=== PATIENT | female | born 1990 | race Caucasian/White ===

== ENCOUNTER → 2019-09-10 17:18 | Outpatient (CLI) | payer OTHER, SELFPAY ==
--- NOTE | ~2019-09-10 | US_ITS ---
EXAMINATION: US renal BI DATE: 09/10/2019 17:33 INDICATION: Right flank pain TECHNIQUE: Multiple grayscale and Doppler ultrasound images of the kidneys were obtained. COMPARISON: None. FINDINGS: The right kidney measures 9.7 x 5.4 x 5.6 cm. The left kidney measures 10.4 x 5.4 x 4.6 cm. The kidneys demonstrate normal parenchymal echogenicity. There is no hydronephrosis. The bladder is normal. IMPRESSION: 1. Normal kidneys without hydronephrosis. Reviewed, dictated and finalized at location A.
== END ==
PROVIDERS: PCP Nurse Practitioner Family; Visit Provider Nurse Practitioner Family
DX: R10.9 Unspecified abdominal pain (principal)
CPT/HCPCS: 76775

== ENCOUNTER 2023-03-20 18:41 | Emergency (ER) | payer OTHER, SELFPAY ==
[2023-03-20 18:53] VITALS: BP 137/82; PULSE 79; RESP 18; TEMP 36.6; O2SAT 100
--- NOTE | 2023-03-20 18:53 | ED.URI ---
HPI - URI/Sore Throat General Chief Complaint: Upper Respiratory Infection Stated Complaint: sorethroat Source: patient and RN notes reviewed History of Present Illness HPI Narrative: 33 yo F presents to urgent care with complaints of left throat, ear, and facial fullness. Pt states it started out as a little nasal drainage on the left side which she has had before so she began taking Claritin. Pt states it has now progressed into her left side of neck/throat and feels like her tonsil is swollen on that side. Denies any fevers, chills, vomiting, chest pain, or SOB. Related Data Home Medications Medication Instructions Recorded Confirmed norethindrone (contraceptive) 0.35 0.35 mg PO DAILY 03/20/23 03/20/23 mg tablet Allergies Allergy/AdvReac Type Severity Reaction Status Date / Time No Known Allergies Allergy Verified 03/20/23 18:59 Review of Systems Review of Systems: Pertinent positives and pertinent negatives per HPI. [facility], LAT[facility] Past Medical History Medical History Essential (primary) hypertension (~2010) History of kidney stones Hyperlipidemia Right flank pain Seasonal allergies Surgical History Surgical History H/O section (~2009) History of renal stent Family History Family History Father Family history of hypercholesterolemia Hypertension Malignant neoplasm of prostate Sibling Family history of hypercholesterolemia Hypertension Melanoma Grandparent Family history of lung cancer Family history of heart disease in male family member before age 55 Social History Social History Smoking status: Never smoker Second hand tobacco smoke exposure: No Alcohol intake: current Drinks per week: 4 Substance use: never Substance use type: does not use Lack of Transportation: No Lack of Food: Never True Current Housing: I Have Housing Concerned About Future Housing: No Difficulty Paying Gas/Electric Bills: No Difficulty Paying for Meds: No Currently Unemployed: No Education: Associate Degree Difficulty w/ Childcare or Family Care: No Living arrangements: with family Additional living arrangements comments: 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 There is no relevant family history pertinent to the patient complaint. Exam Narrative: GENERAL: This is a well-nourished, well-developed patient, in no apparent distress. HEAD: normocephalic, atraumatic. EYES: Sclera clear/white. Vision is grossly intact. EARS: External ears normal, auditory canals clear and without drainage, TMs normal without perforation. Hearing grossly intact. NOSE: External nose normal with no obvious nasal discharge, nares without redness, no rhinorrhea. THROAT: Mucous membranes moist, posterior pharynx mildly erythremic. Some white exudate noted to left superior tonsil. Visuality is limited on exam. NECK: Neck supple, with mild lymphadenopathy on the left. No masses or thyromegaly. CARDIOVASCULAR: Regular rate and rhythm without murmurs, gallops, or rubs. RESPIRATORY: Clear to auscultation. Breath sounds equal bilaterally. No wheezes, rales, or rhonchi. SKIN: warm, intact with no suspicious lesions or rash, good texture and turgor. NEURO: awake, alert, and oriented to person, place and time. There were no obvious focal neurologic abnormalities. Course Course Level of Care: Express Care Visit Vital Signs Vital signs: Vital Signs
--- NOTE | 2023-03-20 19:16 | PC.NURSE ---
PT DECLINES TRANSFER TO ER FOR FURTHER EVALUATION. PT DENIES ANY DIFFICULTY BREATHING. NO RESP DISTRESS NOTED. LEFT TONSIL IS NOTED TO BE SWOLLEN.
== END 2023-03-20 19:20 | disposition home or self-care (01) ==
PROVIDERS: Emergency Provider Nurse Practitioner Family; PCP Nurse Practitioner Family
DX: J03.90 Acute tonsillitis, unspecified (principal); E78.5 Hyperlipidemia, unspecified; I10 Essential (primary) hypertension
CPT/HCPCS: 87081; 87880; 99213; G0463

== ENCOUNTER 2023-07-09 16:44 | Emergency (ER) | payer OTHER, SELFPAY ==
--- NOTE | ~2023-07-09 | CT_ITS ---
Non-contrast CT scan of the Abdomen and Pelvis Clinical indication: Right flank pain Technique: 2.5 mm axial scans were obtained through the abdomen and pelvis without intravenous or or al contrast. Dose reduction technique was used on this scan by utilizing automated exposure control a nd iterative reconstruction technique. The dose-length product (DLP) was 560.21 mGy-cm. Findings: Images through the lung bases reveal no abnormalities. 1 cm nonobstructing right renal stone noted. Additional 3-4 mm nonobstructing right renal stone prese nt. No left renal stone. No ureteral stone or hydronephrosis on either side. The liver, spleen, pancreas, gallbladder, and adrenals appear normal. There is no aortic aneurysm. There is no evidence of bowel obstruction. Normal appendix. Images through the pelvis were performed. There is no evidence of ascites or lymphadenopathy. Urinary bladder unremarkable. No adnexal mass seen. No ascites. Impression: Nonobstructing right nephrolithiasis, as detailed above. Reviewed, dictated and finalized at [facility]. NEERING PROGRAM ANALYST Impression: Nonobstructing right nephrolithiasis, as detailed above.
[2023-07-09 16:54] VITALS: BP 120/79; PULSE 92; RESP 18; TEMP 36.6; O2SAT 100
--- NOTE | 2023-07-09 17:05 | ED.GENADULT ---
HPI - General Adult General Chief complaint: Urogenital-Female Stated complaint: R kidney pain Time Seen by Provider: 07/09/23 16:47 History of Present Illness HPI narrative: 33-year-old female presents to the emergency department for evaluation of right flank pain. Patient states she has had right flank pain for approximately last 2 weeks. Patient had follow-up on Monday and had a UA that showed no evidence of hematuria no evidence of infection. Patient does have history of kidney stones and suspected this was what was causing the pain but pain has been persistent. Patient does have complaint of pain and nausea. Patient declined any medications for pain or for nausea control. Related Data Home Medications Medication Instructions Recorded Confirmed norethindrone (contraceptive) 0.35 0.35 mg PO DAILY 03/20/23 03/20/23 mg tablet Allergies Allergy/AdvReac Type Severity Reaction Status Date / Time No Known Allergies Allergy Verified 07/09/23 17:03 Review of Systems Review of Systems: All systems reviewed & are unremarkable except as noted in HPI and below PMFSH Past Medical History Medical History Essential (primary) hypertension (~2010) History of kidney stones Hyperlipidemia Right flank pain Seasonal allergies Surgical History Surgical History H/O section (~2009) History of renal stent Family History Family History Father Family history of hypercholesterolemia Hypertension Malignant neoplasm of prostate Sibling Family history of hypercholesterolemia Hypertension Melanoma Grandparent Family history of lung cancer Family history of heart disease in male family member before age 55 Social History Social History Smoking status: Never smoker Second hand tobacco smoke exposure: No Alcohol intake: current Drinks per week: 4 Substance use: never Substance use type: does not use Lack of Transportation: No Lack of Food: Never True Current Housing: I Have Housing Concerned About Future Housing: No Difficulty Paying Gas/Electric Bills: No Difficulty Paying for Meds: No Currently Unemployed: No Education: Associate Degree Difficulty w/ Childcare or Family Care: No Living arrangements: with family Additional living arrangements comments: 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 HEAD: normocephalic, atraumatic. EYES: PERRLA/EOMI, conjunctivae clear. NECK: Supple. No adenopathy, no masses. RESPIRATORY: Airway patent, respirations nonlabored. Clear to auscultation bilaterally, no rales, rhonchi, wheezing. CARDIOVASCULAR: Regular rate and rhythm without murmurs rubs or gallops. ABDOMINAL: Right CVA tenderness to palpation MUSCULOSKELETAL: Moves all extremities. Strength/ROM intact, No edema, No calf tenderness. NEURO: Alert. Cranial nerves II through XII intact. Grossly intact SKIN: Warm, dry. Normal Color Course Course Emergency Course: 33-year-old female present to the emergency department for evaluation of right flank pain. Patient is afebrile with no leukocytosis and a stable hemoglobin. No acute abnormalities on her CMP. UA was positive for blood and white blood cells. Along with rare bacteria. CT scan was negative for obstructing ureteral calculi. Patient does have some burning with urination along with the right CVA tenderness. Patient is being treated for a suspected urinary tract infection. Patient was updated on the treatment plan. All ques
[2023-07-09 17:15] VITALS: BP 117/73; PULSE 78; RESP 22; O2SAT 100
[2023-07-09 17:18] LABS: Appearance Urine Clear (Clear); Bacteria Urine Rare /hpf; Bilirubin Urine Negative (Negative); Blood Urine 1+ (Negative); Color Urine Yellow (Yellow); Glucose Urine UA Negative (Negative); Ketones Urine Negative (Negative); Leukocyte Esterase Ur Trace LEU/UL (Negative); Nitrate Urine Negative (Negative); Non Pathogenic Casts 0-2; Protein Urine Negative (Negative); RBC Urine 0-2 /hpf (0-2); Specific Grav Ur 1.013 (1.001-1.035); Squamous Epithelial Cell Urine Occasional /hpf (Few); Urobilinogen Urine 0.2 mg/dL (<2.0); pH Urine 5.5 (5.0-9.0)
[2023-07-09 17:22] LABS: Add Urine Microscopic? YES
[2023-07-09 17:27] LABS: Basophils Percent Auto 0.4 % (0.2-1.2); Eosinophils Absolute Auto 0.2 K/mm3 (0-0.3); Eosinophils Percent Auto 2.4 % (0-4.4); Hematocrit 43.2 % (37.0-47.0); Hemoglobin 14.4 g/dL (12.0-15.0); Immature Granulocyte Absolute 0.01 K/mm3 (0.00-0.031); Immature Granulocyte Percent A 0.1 % (0-0.5); Lymphocytes Absolute Auto 2.91 K/mm3 (0.9-3.2); Lymphocytes Percent Auto 38.9 % (18.3-44.2); Mean Corpuscular HGB Conc 33.3 g/dl (32-36); Mean Corpuscular Volume 92.9 fl (80-100); Mean Platelet Volume 8.9 fl (7.4-10.4); Monocytes Absolute Auto 0.7 K/mm3 (0.1-0.6); Monocytes Percent Auto 9.1 % (2.6-8.5); Neutrophils Absolute Auto 3.7 K/mm3 (1.3-6.7); Neutrophils Percent Auto 49.1 % (45.5-73.1); Platelet Count Result 279 k/mm3 (150-375); Red Blood Count 4.65 M/mm3 (4.2-5.4); Red Cell Distribution Width 11.9 % (11.5-14.5); White Blood Count 7.5 K/mm3 (4.5-10.0)
[2023-07-09 17:42] LABS: Alanine Aminotransferase 34 U/L (6-35); Albumin Level 4.2 g/dL (3.5-5.1); Alkaline Phosphatase 64 U/L (38-126); Anion Gap 8 mmol/L (8-16); Aspartate Amino Transferase 26 U/L (14-36); Bilirubin,Total 0.2 mg/dL (0.2-1.3); Blood Urea Nitrogen 13 mg/dL (7-17); Calcium 9.2 mg/dL (8.4-10.2); Carbon Dioxide 23 mmol/L (22-30); Chloride 106 mmol/L (98-107); Estimated Glomerular Filt Rate > 60; Glucose 110 mg/dL (65-110); Sodium 137 mmol/L (137-145)
[2023-07-09 17:45] VITALS: PULSE 79; RESP 18; O2SAT 100
[2023-07-09 18:00] VITALS: PULSE 70; RESP 23; O2SAT 100
[2023-07-09 18:15] VITALS: PULSE 77; RESP 20; O2SAT 99
[2023-07-09] MEDS: CEPHALEXIN 500 MG CAPSULE PO (18:22)
[2023-07-09] MEDS: PHENAZOPYRIDINE HCL 100 MG TABLET 200 MG PO (18:22)
[2023-07-09] MEDS: HYDROcodone/acetaminophen (*CRX) 5-325 MG TABLET 1 TAB PO (18:22)
[2023-07-09 18:30] VITALS: BP 120/70; PULSE 80; RESP 18; O2SAT 99
== END 2023-07-09 18:42 | disposition home or self-care (01) ==
LOC: ANHED 18:28
PROVIDERS: Emergency Provider Emergency Medicine; PCP Nurse Practitioner Family
DX: R10.31 Right lower quadrant pain (principal); I10 Essential (primary) hypertension; E78.5 Hyperlipidemia, unspecified; Z87.442 Personal history of urinary calculi; N20.0 Calculus of kidney
CPT/HCPCS: 36415; 74176; 80053; 81001; 81025; 85025; 87086; 87088; 99284; A9270

== ENCOUNTER 2023-07-19 16:39 | Outpatient (CLI) | payer OTHER, SELFPAY ==
--- NOTE | ~2023-07-19 | XR_ITS ---
EXAMINATION: XR abdomen/kub 1V DATE: 07/19/2023 16:55 INDICATION: Calculus of kidney. TECHNIQUE: A supine view of the abdomen on 2 radiographs was obtained. COMPARISON: CT abdomen and pelvis 07/09/2023 FINDINGS: There are no dilated loops of bowel. There is a 6 mm stone in right kidney. There are phleb oliths in right pelvis. IMPRESSION: 1. 6 mm stone in right kidney. Reviewed, dictated and finalized at location E. PLANNER
== END 2023-07-19 16:40 ==
PROVIDERS: PCP Nurse Practitioner Family; Visit Provider Nurse Practitioner Family
DX: N20.0 Calculus of kidney (principal)
CPT/HCPCS: 74018

== ENCOUNTER 2023-08-14 07:51 | Outpatient (CLI) | payer OTHER, SELFPAY ==
--- NOTE | 2023-08-14 08:02 | ECG_ITS ---
Measurements Intervals [place] Rate: 73 P: 41 NM: 151 QRS: 6 QRSD: 81 T: 39 QT: 382 QTc: 423 Interpretive Statements SINUS RHYTHM LOW-VOLTAGE QRS IN PRECORDIAL LEADS BORDERLINE ECG NO PREVIOUS ECG AVAILABLE FOR COMPARISON Electronically Signed On 08-14-2023 18:24:50 DENTAL INSTRUMENT MAKER by Daryn Dean M.D.
[2023-08-14 08:42] LABS: Prothrombin Time 13.5 Seconds (11.1-14.7)
[2023-08-14 08:43] LABS: Partial Thromboplastin Time 27.1 SECONDS (22.3-36.8)
== END 2023-08-14 07:52 | disposition home or self-care (01) ==
LOC: ANHSURGERY 07:56
PROVIDERS: PCP Nurse Practitioner Family; Visit Provider Urology
DX: Z01.818 Encounter for other preprocedural examination (principal); N20.0 Calculus of kidney; I10 Essential (primary) hypertension; R93.1 Abnormal findings on diagnostic imaging of heart and coronary circulation
CPT/HCPCS: 36415; 85610; 85730; 87086; 93005

== ENCOUNTER 2023-08-18 01:34 | Day surgery (SDC) | payer OTHER, SELFPAY ==
[2023-08-09 09:23] VITALS: BMI 33.3
--- NOTE | 2023-08-09 09:29 | PC.NURSE ---
Report to the Outpatient Waiting Room, entrance under the green pavilion located off [facility], at time 8:30 on date 08/18/23. Planned Procedure Time: 10:30. Time changes happen often and if your time is changed the preop area will call you the afternoon before. - You and your visitor will be asked to self-screen and do not enter if you have any COVID symptoms. - A mask is optional within the hospital at this time. Patients may have clear liquids (water, carbonated beverages, clear teas, apple juice) until 3 hours prior to surgery (7:30) with a maximum of 20 ounces. - No food from midnight until time of surgery Take the following medications with a SIP of water the morning of surgery: CONTROL DO NOT STOP ANY OF YOUR OTHER PRESCRIPTION MEDICATIONS PRIOR TO SURGERY ?EXCEPT THE FOLLOWING Medications to discontinue per physician: N/A Date to take last dose: N/A Please no make-up, nail panamanian, hairspray, perfume, deodorant, or body powder the day of surgery. No jewelry (including any body piercings) or valuables the day of surgery, leave them at home. Please take a shower or bath the night before, or the morning of, surgery with an antibacterial soap. Wear comfortable, loose fitting clothing. - Jewelry must be removed prior to entering the operating room. Rings and piercings that are not removed may be cut off. - The hospital will not accept responsibility for valuables. - Please leave all valuables, including medications, at home the day of surgery. If you are going home after surgery, a licensed route sales delivery driver must drive you home. - NO public transportation without another adult if you receive anesthesia. - We recommend that an adult stay with you for 24 hours following discharge. - We also recommend that you do not drive, make important decision, drink alcoholic beverages, or take any drugs that were not prescribed by your health care provider for at least 24 hours after your discharge time. Follow any additional instructions given to you from your surgeon. If you or anyone in your household have experienced Covid symptoms in the past week, please notify your surgeon or the nurse liaison at the phone number below for possible testing. Telephone instructions given to PT - MERCEDES PALMA and asked if any additional questions and then verbalized understanding. Patient advised to call surgeon office or pre surgery nurse liaison [phone] if any additional questions.
--- NOTE | 2023-08-10 07:28 | PM.HPGS ---
History of Present Illness History of Present Illness Consent: Risks, benefits, and alternatives have been discussed and questions answered. Patient agrees to proceed with procedure. Chief complaint: right renal stones Narrative: Karley Novak is a 33 year old female who was in the emergency department [facility] in night June 2023 with flank pain. Imaging demonstrated a 1 cm right renal calculus with a smaller peripheral calculi. After discussion of options she elects for right ESWL. She is aware the risk including, but not limited to, adverse cardiopulmonary events, hematuria, perinephric hematoma and need for additional procedures. Review of Systems Cardiovascular: Cardiovascular: Denies chest pain, Denies lightheadedness, Denies palpitations and Denies dyspnea Respiratory: Respiratory: Denies dyspnea Gastrointestinal: Gastrointestinal: Denies diarrhea, Denies nausea and Denies vomiting Genitourinary: Genitourinary: Denies hematuria and Denies dysuria Endocrine: Endocrine: Denies palpitations [facility] Past Medical History Medical History Essential (primary) hypertension (~2010) History of kidney stones Hyperlipidemia Right flank pain Seasonal allergies Surgical History Surgical History H/O section (~2009) History of renal stent Family History Family History Father Family history of hypercholesterolemia Hypertension Malignant neoplasm of prostate Sibling Family history of hypercholesterolemia Hypertension Melanoma Grandparent Family history of lung cancer Family history of heart disease in male family member before age 55 Social History Social History Smoking status: Never smoker Second hand tobacco smoke exposure: No Alcohol intake: current Drinks per week: 4 Alcohol use details: RARE Substance use: never Substance use type: does not use Lack of Transportation: No Lack of Food: Never True Current Housing: I Have Housing Concerned About Future Housing: No Difficulty Paying Gas/Electric Bills: No Difficulty Paying for Meds: No Currently Unemployed: No Education: Associate Degree Difficulty w/ Childcare or Family Care: No Living arrangements: with family Additional living arrangements 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: occupation Gender identity (if verbalized by the patient): Female Sexual Orientation (if Verbalized by the Patient): Straight or Heterosexual Spiritual care concerns: No Agree to blood products: Yes Meds Home Medications and Allergies Home Medications Medication Instructions Recorded Confirmed Type pravastatin 10 mg tablet 10 mg PO QHS #90 tabs 03/15/23 08/09/23 Rx norethindrone (contraceptive) 0.35 0.35 mg PO DAILY 03/20/23 08/09/23 History mg tablet lisinopril 10 mg tablet 10 mg PO DAILY #90 tabs 06/06/23 08/09/23 Rx Allergies Allergy/AdvReac Type Severity Reaction Status Date / Time No Known Allergies Allergy Verified 08/09/23 09:22 Exam Const: General: no acute distress Resp: Effort & Inspection: normal respiratory effort GI: Inspection: non-distended GI Palp: No abdominal tenderness and No Guarding due to palpation present (GI) Auscultation: normal bowel sounds Assessment and Plan Assessment and plan (1) Right renal stone: Code(s): N20.0 - Calculus of kidney Status: Acute Assessment and Plan: Right ESWL
[2023-08-18] VITALS (9 sets, daily range): BP systolic 106–121; BP diastolic 61–77; PULSE 66–98; RESP 12–20; TEMP 36.2–36.9; O2SAT 95–100
--- NOTE | ~2023-08-18 | XR_ITS ---
EXAMINATION: XR abdomen/kub 1V INDICATION: Calculus of the kidney TECHNIQUE: Supine views of the abdomen were obtained on 2 radiographs. COMPARISON: 07/19/2023 FINDINGS: Bowel contents project over the right kidney limiting sensitivity for renal stones. There a ppears to be a 7 mm stone of the right kidney lower pole. No stones are identified in the left kidney , ureters, or the bladder. The bowel gas pattern is normal. There are no dilated loops of bowel. IMPRESSION: 1. 7 mm stone projecting in the right kidney lower pole. Reviewed, dictated and finalized at location B. ICAL TRIAL EDUCATOR
--- NOTE | 2023-08-18 06:11 | WPDHPUPDATE1 ---
History and Physical Update Update Date/Time: 08/18/23 06:11 History and Physical has been reviewed, including an updated exam of the patient. There are NO changes in the patient's condition. Risks, benefits, and alternatives have been discussed and questions answered. Patient agrees to proceed with procedure.
[2023-08-18] MEDS: LACTATED RINGERS 1,000 ML 30 ML IV CONT ×2 (09:35→11:35)
--- NOTE | 2023-08-18 10:36 | WPDANESEPPF ---
Anes - Initial Pre Proc Eval Procedure: Operation Date: 08/18/23 10:30 Proposed Procedures p Right Extracorporeal Shock Wave Lithotripsy - Drew Kaplan MD s Cystoscopy with Right Stent Placement - Drew Kaplan MD Date/Time: 08/18/23 10:36 Surgeon: Drew Kaplan MD Pre Op Diagnosis: right renal stones Patient Data Age: 33 Gender: F Height: 1.5 m Weight: 75.5 kg Last Vital Signs Temp 36.9 C 08/18/23 09:26 Pulse 85 08/18/23 09:26 Resp 20 08/18/23 09:26 BP 110/65 08/18/23 09:26 Pulse Ox 99 08/18/23 09:26 O2 Del Method Room Air 08/18/23 09:26 Allergies Allergy/AdvReac Type Severity Reaction Status Date / Time No Known Allergies Allergy Verified 08/18/23 09:24 Home Medications Medication Instructions Recorded Confirmed Type pravastatin 10 mg tablet 10 mg PO QHS #90 tabs 03/15/23 08/18/23 Rx norethindrone (contraceptive) 0.35 0.35 mg PO DAILY 03/20/23 08/18/23 History mg tablet lisinopril 10 mg tablet 10 mg PO DAILY #90 tabs 06/06/23 08/18/23 Rx Patient hx anesthesia problems: none Family hx anesthesia problems: none Results Review: All pre-operative results and documents have been reviewed as part of the pre-operative evaluation. [facility] Past Medical History Medical History Essential (primary) hypertension (~2010) History of kidney stones Hyperlipidemia Right flank pain Seasonal allergies Surgical History Surgical History H/O section (~2009) History of renal stent Family History Family History Father Family history of hypercholesterolemia Hypertension Malignant neoplasm of prostate Sibling Family history of hypercholesterolemia Hypertension Melanoma Grandparent Family history of lung cancer Family history of heart disease in male family member before age 55 Social History Social History Smoking status: Never smoker Second hand tobacco smoke exposure: No Alcohol intake: current Drinks per week: 4 Alcohol use details: RARE Substance use: never Substance use type: does not use Lack of Transportation: No Lack of Food: Never True Current Housing: I Have Housing Concerned About Future Housing: No Difficulty Paying Gas/Electric Bills: No Difficulty Paying for Meds: No Currently Unemployed: No Education: Associate Degree Difficulty w/ Childcare or Family Care: No Living arrangements: with family Additional living arrangements 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: occupation Gender identity (if verbalized by the patient): Female Sexual Orientation (if Verbalized by the Patient): Straight or Heterosexual Spiritual care concerns: No Agree to blood products: Yes Anes - Eval Final PreProcedure Day of Procedure 08/18/23 10:36 Patient weight: obese Heart: regular rate and rhythm Lungs: clear to auscultation Airway: Mallampati scale class II Neurological: alert and oriented Last oral intake: >/= 8 hours ASA classification: III Emergent: no Anesthetic plan: proceed Anesthesia type and monitoring: general LMA and standard monitoring Results Review: All pre-operative results and documents have been reviewed as part of the pre-operative evaluation. Informed Consent: The patient's anesthetic plan and its attendant risks and benefits were discussed with the patient/family/POA. Questions were solicited and answers provided to the satisfaction of the patient/family/POA.
[2023-08-18] MEDS: SCOPOLAMINE 1 MG PATCH 1 PATCH TRANSDERM (10:41)
[2023-08-18] MEDS: ceFAZolin 2 GM/D5W 50 ML 2 GM/50 ML BAG IVPB (10:50)
--- NOTE | 2023-08-18 11:26 | W.PM.PROC2 ---
Procedure Note - Detailed Date of Procedure 08/18/23 Pre-op Diagnosis Right renal stones Post-op Diagnosis Same Procedure Performed Right ESWL Surgeon Drew Kaplan MD Anesthesia General Description of Procedure The patient was brought to the operative suite where he was placed in the supine position on the Dornier lithotripsy table. The focal point of the lithotripter was placed at a 7mm right renal calculus. A total of 2500 shocks were delivered at a power setting of 4. There appeared to be good fragmentation of the stone. The patient tolerated the procedure well and was taken to the recovery room in good condition. Drains No Packing No Pathology None sent Complications No immediate complications Condition Stable
[2023-08-18] MEDS: fentaNYL CITRATE INJ (*CRX) 100 MCG/2 ML VIAL 25 MCG IV PUSH ×4 (12:18→12:26)
[2023-08-18] MEDS: oxyCODONE HCL (*CRX) 5 MG TAB IR PO (12:52)
== END 2023-08-18 13:39 | disposition home or self-care (01) ==
PROVIDERS: PCP Nurse Practitioner Family; Visit Provider Urology
PROC: (CPT 50590; principal; 2023-08-18 10:30)
DX: N20.0 Calculus of kidney (principal); I10 Essential (primary) hypertension; E78.5 Hyperlipidemia, unspecified; E66.9 Obesity, unspecified; Z68.33 Body mass index [BMI] 33.0-33.9, adult
CPT/HCPCS: 50590; 36415; 74018; 85610; 85730; 87086; 93005; A9270; J0690; J1100; J2250; J2405; J2704; J3010; J7120

== ENCOUNTER 2023-08-30 08:31 | Outpatient (CLI) | payer OTHER, SELFPAY ==
--- NOTE | ~2023-08-30 | XR_ITS ---
EXAMINATION: XR abdomen/kub 1V INDICATION: Right renal stone TECHNIQUE: Supine views of the abdomen were obtained on 2 radiographs. COMPARISON: 09/16/2023 FINDINGS: The previously described stone of the right kidney lower pole is not definitely identified, consistent with interval lithotripsy. No stone fragments are identified along the expected course of the right ureter. There are phleboliths of the right pelvis. The bowel gas pattern is normal. No uro lithiasis is identified. IMPRESSION: 1. No urolithiasis identified. Reviewed, dictated and finalized at location B. ISITIONS ASSISTANT
== END 2023-08-30 08:32 | disposition home or self-care (01) ==
PROVIDERS: PCP Nurse Practitioner Family; Visit Provider Urology
DX: N20.0 Calculus of kidney (principal)
CPT/HCPCS: 74018

== ENCOUNTER 2024-01-10 11:49 | Emergency (ER) | payer OTHER, SELFPAY ==
--- NOTE | ~2024-01-10 | CT_ITS ---
EXAMINATION: CT abdomen pelvis w con DATE: 01/10/2024 12:52 INDICATION: Right lower quadrant abdominal pain TECHNIQUE: Computed tomography (CT) of the abdomen and pelvis was performed with 100 mL Omnipaque-350 intravenous contrast. Automated exposure control and iterative reconstruction technique were employe d. The dose-length product was 487.81 mGy-cm. COMPARISON: 07/09/2023 FINDINGS: Lung bases are clear. Heart size is normal. No pericardial or pleural effusion. Unchanged 6 mm low-at tenuation splenic lesion likely a cyst or hemangioma. Diffuse hepatic steatosis. Gallbladder, pancrea s, bilateral adrenal glands and kidneys are normal. 4 mm stone in the mid right ureter without hydron ephrosis. There is however urothelial enhancement and periureteral stranding in the region of the sto ne. No other evident urolithiasis. Bowels including the appendix are normal. Bladder, uterus and bila teral adnexa are unremarkable. No free intraperitoneal gas or fluid. No pathologically enlarged abdom inal or pelvic lymphadenopathy. Bones are unremarkable. IMPRESSION: 1. 4 mm stone in the mid right ureter with mild surrounding inflammatory changes but no hydronephrosi s. Reviewed, dictated and finalized at location A. IMPRESSION: 1. 4 mm stone in the mid right ureter with mild surrounding inflammatory change s but no hydronephrosis.
--- NOTE | ~2024-01-10 | XR_ITS ---
XR abdomen/kub 1V Ordering provider: Grayson Bernal MD History: . right sided kidney stone, RIGHT ANTERIOR PELVIC PAIN . Comparison: August 30, 2023 FINDINGS: BOWEL: Nonobstructive bowel gas pattern. ORGANOMEGALY: None. SIGNIFICANT PATHOLOGIC CALCIFICATIONS: The kidneys cannot be evaluated due to overlapping gases. OTHER: Contrast is seen in the urinary bladder. IMPRESSION: NO definite ACUTE ABDOMINAL FINDINGS. Reviewed, dictated and finalized at location A.
[2024-01-10 11:53] VITALS: BP 142/81; PULSE 84; RESP 16; TEMP 36.9; O2SAT 99
[2024-01-10 12:22] LABS: Basophils Percent Auto 0.4 % (0.2-1.2); Eosinophils Absolute Auto 0.1 K/mm3 (0-0.3); Eosinophils Percent Auto 1.2 % (0-4.4); Hematocrit 46.2 % (37.0-47.0); Hemoglobin 15.8 g/dL (12.0-15.0); Immature Granulocyte Absolute 0.02 K/mm3 (0.00-0.031); Immature Granulocyte Percent A 0.2 % (0-0.5); Lymphocytes Absolute Auto 3.16 K/mm3 (0.9-3.2); Lymphocytes Percent Auto 35.5 % (18.3-44.2); Mean Corpuscular HGB Conc 34.2 g/dl (32-36); Mean Corpuscular Hemoglobin 31.5 pg (26-34); Mean Platelet Volume 8.8 fl (7.4-10.4); Monocytes Absolute Auto 0.6 K/mm3 (0.1-0.6); Monocytes Percent Auto 7.1 % (2.6-8.5); Neutrophils Absolute Auto 4.9 K/mm3 (1.3-6.7); Neutrophils Percent Auto 55.6 % (45.5-73.1); Platelet Count Result 313 k/mm3 (150-375); Red Blood Count 5.02 M/mm3 (4.2-5.4); Red Cell Distribution Width 12.4 % (11.5-14.5); White Blood Count 8.9 K/mm3 (4.5-10.0)
[2024-01-10 12:35] LABS: Alanine Aminotransferase 63 U/L (6-35); Albumin Level 5.1 g/dL (3.5-5.1); Alkaline Phosphatase 81 U/L (38-126); Anion Gap 14 mmol/L (4-12); Aspartate Amino Transferase 43 U/L (14-36); Bilirubin,Total 0.5 mg/dL (0.2-1.3); Blood Urea Nitrogen 12 mg/dL (7-17); Calcium 9.5 mg/dL (8.4-10.2); Carbon Dioxide 24 mmol/L (22-30); Chloride 100 mmol/L (98-107); Estimated Glomerular Filt Rate > 60; Glucose 101 mg/dL (65-110); Potassium 4.1 mmol/L (3.4-5.0); Sodium 138 mmol/L (137-145)
[2024-01-10 12:44] LABS: Appearance Urine Clear (Clear); Bacteria Urine None Seen /hpf; Bilirubin Urine Negative (Negative); Blood Urine 2+ (Negative); Color Urine Yellow (Yellow); Glucose Urine UA Negative (Negative); Ketones Urine Negative (Negative); Leukocyte Esterase Ur Negative LEU/UL (Negative); Need Manual Microscopic Reviewed; Nitrate Urine Negative (Negative); Non Pathogenic Casts 0-2; Protein Urine Negative (Negative); RBC Urine 0-2 /hpf (0-2); Specific Grav Ur 1.003 (1.001-1.035); Squamous Epithelial Cell Urine None Seen /hpf (Few); Urobilinogen Urine 0.2 mg/dL (<2.0); WBC Urine 0-5 /hpf (0-3)
[2024-01-10 12:46] LABS: Add Urine Microscopic? YES
[2024-01-10] MEDS: MORPHINE SULFATE (*CRX) 4 MG/ML INJ IV PUSH (13:16)
[2024-01-10] MEDS: ONDANSETRON INJ 4 MG/2 ML VIAL IV PUSH (13:16)
[2024-01-10] MEDS: SODIUM CHLORIDE 0.9% IV 1,000 ML 999 ML IV CONT (13:17)
--- NOTE | 2024-01-10 13:38 | ED.GENADULT ---
HPI - General Adult General Chief complaint: Urogenital-Female Stated complaint: r flank pain Time Seen by Provider: 01/10/24 12:02 History of Present Illness HPI narrative: Patient is a 33-year-old female who presents ER with intermittent right-sided abdominal pain. Ongoing for 6 days. Located right lower quadrant. Saw urology 3 days ago. Has outpatient CT ordered for Monday. No fevers or chills or sweats. No aggravating or alleviating factors. No urinary frequency urgency or dysuria. No hematuria. Related Data Home Medications Medication Instructions Recorded Confirmed norethindrone (contraceptive) 0.35 0.35 mg PO DAILY 03/20/23 08/18/23 mg tablet Allergies Allergy/AdvReac Type Severity Reaction Status Date / Time No Known Allergies Allergy Verified 01/10/24 12:01 Review of Systems Review of Systems: All systems reviewed & are unremarkable except as noted in HPI and below Constitutional: Constitutional: Reports no additional constitutional complaints ENT: Reports system reviewed and no additional complaints, except as documented Cardiovascular: Cardiovascular: Reports no additional cardiovascular complaints Respiratory: Respiratory: Reports no additional respiratory complaints Gastrointestinal: Gastrointestinal: Reports abdominal pain, Denies diarrhea, Reports nausea and Denies vomiting Genitourinary: Genitourinary: Denies dysuria and Denies flank pain PMFSH Past Medical History Medical History Essential (primary) hypertension (~2010) History of kidney stones Hyperlipidemia Right flank pain Seasonal allergies Surgical History Surgical History H/O section (~2009) History of renal stent Family History Family History Father Family history of hypercholesterolemia Hypertension Malignant neoplasm of prostate Sibling Family history of hypercholesterolemia Hypertension Melanoma Grandparent Family history of lung cancer Family history of heart disease in male family member before age 55 Social History Social History Smoking status: Never smoker Second hand tobacco smoke exposure: No Alcohol intake: current Drinks per week: 4 Alcohol use details: RARE Substance use: never Substance use type: does not use Lack of Transportation: No Lack of Food: Never True Current Housing: I Have Housing Concerned About Future Housing: No Difficulty Paying Gas/Electric Bills: No Difficulty Paying for Meds: No Currently Unemployed: No Education: Associate Degree Difficulty w/ Childcare or Family Care: No Living arrangements: with family Additional living arrangements comments: 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 HEAD: Normocephalic, atraumatic. ENT: Mucous membranes moist. CHEST: Clear to auscultation. No respiratory distress. HEART: Regular rate and rhythm. Normal peripheral pulses. ABDOMEN: Soft, mild RLQ pain, nondistended. No CVA tenderness. EXTREMITIES: Normal range of motion. No edema. SKIN: Warm, dry, no rash. NEURO: Alert and oriented x3. PSYCH: Normal mood and affect. Course Course Emergency Course: Patient resting comfortably. Informed of results. Discussed with Urology. They will try to take her to the OR in a couple days. Vital Signs Vital signs: Vital Signs Temperature 98.4 F 01/10/24 11:53 Pulse Rate 84 01/10/24 11:53 Respiratory Rate 16 01/10/24 11:53 Blood P
[2024-01-10 14:05] VITALS: BP 135/71; PULSE 86; RESP 16; O2SAT 98
--- NOTE | 2024-01-10 15:16 | WPDURCON ---
Assessment and Plan Assessment and plan (1) Ureterolithiasis: Code(s): N20.1 - Calculus of ureter Status: Acute Assessment and Plan: 4 mm distal-mid right ureter stone without hydronephrosis. Continue trial of passage with tamsulosin, analgesics, antiemetics, straining urine. Will arrange outpatient ureteroscopy in the event the stone does not pass. Urology Consult Note HPI Date Seen: 01/10/24 Primary Care Provider: Zhen Lombardi MD Consult Narrative Narrative: Karley Novak is a 33 year old female wit history of kidney stones who presented to the ER today with right flank pain ongoing for 6 days. She was seen in the office on 01/08/2024 with similar symptoms. her symptoms felt to be consistent with prior kidney stones, therefore she was started on tamsulosin and instructed to strain urine. CT of the/pelvis was ordered, but was not able to be scheduled until 01/12/2024. Unfortunately, today her pain became more severe and she had associated nausea and poor appetite. on arrival to the emergency department, her vital signs were stable and she was afebrile, WBC was within normal limits at 8.9, creatinine stable at 0.6, UA with negative nitrites and leukocytes, 0-[address] of the abdomen/ pelvis was completed which showed a 4 mm stone in the mid right ureter with mild surrounding inflammatory changes but no hydronephrosis. follow-up KUB was obtained, and stone visible though may be obscured by contrast. the time of my evaluation, the patient is feeling fair. Pain is controlled and she is able to tolerate fluids. Discussed options for management. She opts to continue with tamsulosin, analgesics, antiemetics, and straining urine for possible stone passage. Will work on scheduling outpatient ureteroscopy in the event the stone does not pass. Patient and family member at bedside agreeable to this plan. Review of Systems Review of Systems: All systems reviewed & are unremarkable except as noted in HPI and below PMFSH Past Medical History Medical History Essential (primary) hypertension (~2010) History of kidney stones Hyperlipidemia Right flank pain Seasonal allergies Surgical History Surgical History H/O section (~2009) History of renal stent Family History Family History Father Family history of hypercholesterolemia Hypertension Malignant neoplasm of prostate Sibling Family history of hypercholesterolemia Hypertension Melanoma Grandparent Family history of lung cancer Family history of heart disease in male family member before age 55 Social History Social History Smoking status: Never smoker Second hand tobacco smoke exposure: No Alcohol intake: current Drinks per week: 4 Alcohol use details: RARE Substance use: never Substance use type: does not use Lack of Transportation: No Lack of Food: Never True Current Housing: I Have Housing Concerned About Future Housing: No Difficulty Paying Gas/Electric Bills: No Difficulty Paying for Meds: No Currently Unemployed: No Education: Associate Degree Difficulty w/ Childcare or Family Care: No Living arrangements: with family Additional living arrangements comments: 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
== END 2024-01-10 15:25 | disposition home or self-care (01) ==
PROVIDERS: Emergency Provider Emergency Medicine; PCP Family Medicine
DX: N20.1 Calculus of ureter (principal); I10 Essential (primary) hypertension; E78.5 Hyperlipidemia, unspecified; Z87.442 Personal history of urinary calculi; Z79.3 Long term (current) use of hormonal contraceptives; Z79.899 Other long term (current) drug therapy
CPT/HCPCS: 36415; 74018; 74177; 80053; 81001; 81025; 85025; 96361; 96374; 96375; 99284; J2270; J2405; J7030; Q9967

== ENCOUNTER 2024-01-12 12:41 | Outpatient (CLI) | payer OTHER, SELFPAY | END 2024-01-12 12:42 | disposition home or self-care (01) | LOC: ANHSURGERY 12:45 | PROVIDERS: PCP Family Medicine; Visit Provider Urology | DX: Z01.818 Encounter for other preprocedural examination (principal); N20.0 Calculus of kidney | CPT/HCPCS: 87086 ==

== ENCOUNTER 2024-01-16 01:30 | Day surgery (SDC) | payer OTHER, SELFPAY ==
[2024-01-11 14:38] VITALS: BMI 32.3
--- NOTE | 2024-01-11 14:39 | PC.NURSE ---
Report to the Outpatient Waiting Room, entrance under the green pavilion located off [facility], at time _0800_ on date _[id number]_. Planned Procedure Time: _1000_. Time changes happen often and if your time is changed the preop area will call you the afternoon before. - You and your visitor will be asked to self-screen and do not enter if you have any COVID symptoms. - A mask is optional within the hospital at this time. Patients may have clear liquids (water, carbonated beverages, clear teas, apple juice) until 3 hours prior to surgery with a maximum of 20 ounces. - No food from midnight until time of surgery - Infants may have breast milk until 4 hours before surgery, infant formula 6 hours prior to surgery. - Children will be allowed to drink immediately following surgery. If applicable, please bring a bottle or sippy cup to assist with drinking. Juice, water, soda, and popsicles are readily available. For infants on formula, please bring formula the day of surgery. Pacifiers are allowed. Take the following medications with a SIP of water the morning of surgery: ____Pain and or nausea medication if needed. DO NOT STOP ANY OF YOUR OTHER PRESCRIPTION MEDICATIONS PRIOR TO SURGERY ?EXCEPT THE FOLLOWING Medications to discontinue per physician None___ Date to take last dose Please no make-up, nail portuguese, hairspray, perfume, deodorant, or body powder the day of surgery. No jewelry (including any body piercings) or valuables the day of surgery, leave them at home. Please take a shower or bath the night before, or the morning of, surgery with an antibacterial soap. Wear comfortable, loose fitting clothing. - Jewelry must be removed prior to entering the operating room. Rings and piercings that are not removed may be cut off. - The hospital will not accept responsibility for valuables. - Please leave all valuables, including medications, at home the day of surgery. If you are going home after surgery, a licensed concrete mixer truck driver must drive you home. - NO public transportation without another adult if you receive anesthesia. - We recommend that an adult stay with you for 24 hours following discharge. - We also recommend that you do not drive, make important decision, drink alcoholic beverages, or take any drugs that were not prescribed by your health care provider for at least 24 hours after your discharge time. Follow any additional instructions given to you from your surgeon. If you or anyone in your household have experienced Covid symptoms in the past week, please notify your surgeon or the nurse liaison at the phone number below for possible testing. Telephone instructions given to __Ashlie___and asked if any additional questions and then verbalized understanding. Patient advised to call surgeon office or pre surgery nurse liaison [phone] if any additional questions.
[2024-01-16] VITALS (10 sets, daily range): BP systolic 115–140; BP diastolic 70–82; PULSE 69–87; RESP 9–20; TEMP 36.1–36.3; O2SAT 98–100
--- NOTE | ~2024-01-16 | XR_ITS ---
EXAMINATION: XR retrograde pyelo w/stent RT DATE: 01/16/2024 11:04 INDICATION: Right internal ureteral stent placement TECHNIQUE: Fluoroscopic images from a right internal ureteral stent placement are submitted for carl clarke 8 seconds of fluoroscopy time. 5 fluoroscopic images FINDINGS: There is a right double-J internal ureteral stent projecting in expected position, with proximal Rosebud loop at the level of the renal pelvis. IMPRESSION: 1. Right internal ureteral stent placement. Please refer to real-time procedural findings for blair ls. Reviewed, dictated and finalized at location B. IMPRESSION: 1. Right internal ureteral stent placement. Please refer to real-time procedu ral findings for details.
--- NOTE | 2024-01-16 08:25 | P.PNAN_ITS ---
Anes - Eval Final PreProcedure Day of Procedure 01/16/24 08:25 Patient weight: obese Heart: regular rate and rhythm Lungs: clear to auscultation and normal air movement Airway: Mallampati scale class II Neurological: alert and oriented Last oral intake: >/= 8 hours ASA classification: III (HLD, HTN, Obese) Emergent: no Anesthetic plan: proceed Anesthesia type and monitoring: general LMA and standard monitoring Results Review: All pre-operative results and documents have been reviewed as part of the pre- operative evaluation. Informed Consent: The patient's anesthetic plan and its attendant risks and benefits were discussed with the patient/family/POA. Questions were solicited and answers provided to the satisfaction of the patient/family/POA.
[2024-01-16] MEDS: LACTATED RINGERS 1,000 ML 30 ML IV CONT ×2 (08:41→13:12)
--- NOTE | 2024-01-16 08:43 | WPDANESEPPF ---
Anes - Initial Pre Proc Eval Procedure: Operation Date: 01/16/24 10:00 Proposed Procedures p Cystoscopy, Right Ureteroscopy, Right Stone Extraction, Right Retrograde Pyelogram, Right Stent Placement, Possible Holmium Laser - Charly Collazo MD Date/Time: 01/16/24 08:43 Surgeon: Charly Collazo MD Pre Op Diagnosis: right ureteral stone Pre Op Diagnosis: right ureteral stone Patient Data Age: 33 Gender: F Height: 1.5 m Weight: 78.1 kg Allergies Allergy/AdvReac Type Severity Reaction Status Date / Time No Known Allergies Allergy Verified 01/16/24 08:15 Home Medications Medication Instructions Recorded Confirmed Type pravastatin 10 mg tablet 10 mg PO QHS #90 tabs 03/15/23 01/16/24 Rx hydrocodone 5 mg-acetaminophen 325 1 - 2 tablet PO Q6H PRN pain #20 08/18/23 01/16/24 Rx mg tablet tabs lisinopril 10 mg tablet 10 mg PO DAILY #90 tabs 12/06/23 01/16/24 Rx ondansetron 4 mg disintegrating 4 mg PO Q6H PRN nausea and 01/10/24 01/16/24 Rx tablet vomiting #10 tabs Patient hx anesthesia problems: none Family hx anesthesia problems: none Results Review: All pre-operative results and documents have been reviewed as part of the pre-operative evaluation. [facility] Past Medical History Medical History Essential (primary) hypertension (~2010) History of kidney stones Hyperlipidemia Right flank pain Seasonal allergies Surgical History Surgical History H/O section (~2009) History of renal stent Family History Family History Father Family history of hypercholesterolemia Hypertension Malignant neoplasm of prostate Sibling Family history of hypercholesterolemia Hypertension Melanoma Grandparent Family history of lung cancer Family history of heart disease in male family member before age 55 Social History Social History Smoking status: Never smoker Second hand tobacco smoke exposure: No Alcohol intake: current Drinks per week: 1 Alcohol use details: RARE Substance use: never Substance use type: does not use Lack of Transportation: No Lack of Food: Never True Current Housing: I Have Housing Concerned About Future Housing: No Difficulty Paying Gas/Electric Bills: No Difficulty Paying for Meds: No Currently Unemployed: No Education: Associate Degree Difficulty w/ Childcare or Family Care: No Living arrangements: with family 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 Gender identity (if verbalized by the patient): Female Sexual Orientation (if Verbalized by the Patient): Straight or Heterosexual Spiritual care concerns: No Agree to blood products: Yes Anes - Eval Final PreProcedure Day of Procedure 01/16/24 08:43 Patient weight: obese Heart: regular rate and rhythm Lungs: clear to auscultation and normal air movement Airway: Mallampati scale class II Neurological: alert and oriented Last oral intake: >/= 8 hours ASA classification: III Emergent: no Anesthetic plan: proceed Anesthesia type and monitoring: general LMA Results Review: All pre-operative results and documents have been reviewed as part of the pre-operative evaluation. Informed Consent: The patient's anesthetic plan and its attendant risks and benefits were discussed with the patient/family/POA. Questions were solicited and answers provided to the satisfaction of the patient/family/POA.
--- NOTE | 2024-01-16 09:42 | WPDHPUPDATE1 ---
History and Physical Update Update Date/Time: 01/16/24 09:42 History and Physical has been reviewed, including an updated exam of the patient. There are NO changes in the patient's condition. Risks, benefits, and alternatives have been discussed and questions answered. Patient agrees to proceed with procedure. PROCEED WITH CYSTOSCOPY, RIGHT RETROGRADE PYELOGRAM, RIGHT URETEROSCOPY WITH STONE EXTRACTION, POSSIBLE LASER AND STENT PLACEMENT
--- NOTE | 2024-01-16 09:54 | P.PNAN_ITS ---
Anes - Eval Final PreProcedure Day of Procedure 01/16/24 09:54 Patient weight: obese Heart: regular rate and rhythm Lungs: clear to auscultation Airway: Mallampati scale class II Neurological: alert and oriented Last oral intake: >/= 8 hours ASA classification: III Emergent: no Anesthetic plan: proceed Anesthesia type and monitoring: general LMA and standard monitoring Results Review: All pre-operative results and documents have been reviewed as part of the pre- operative evaluation. Informed Consent: The patient's anesthetic plan and its attendant risks and benefits were discussed with the patient/family/POA. Questions were solicited and answers provided to the satisfaction of the patient/family/POA.
[2024-01-16] MEDS: ceFAZolin 2 GM/D5W 50 ML 2 GM/50 ML BAG IVPB (10:21)
[2024-01-16] MEDS: LIDOCAINE HCL 2% GEL UROJET 10 ML PKG MUCOUS MEM (10:21)
--- NOTE | 2024-01-16 10:53 | W.PM.PROC2 ---
Procedure Note - Detailed Date of Procedure 01/16/24 Pre-op Diagnosis right ureteral stone 4 mm Post-op Diagnosis Same Procedure Performed Cystoscopy, right retrograde pyelogram, right ureteroscopy with stone extraction, right ureteral stent placement 4.8 Liberian contour Surgeon Charly Collazo MD Anesthesia General Description of Procedure Patient is taken to the operative suite correctly identified. Once anesthesia was obtained she was placed in dorsal lithotomy position and prepped and draped usual sterile fashion. Twenty-two Liberian scope was inserted the bladder. There were no tumors noted. Right ureteral orifice was cannulated with a Sensor wire. Dilated the orifice with an 8/10 dilator. Rigid ureteral scope was inserted the stone was visualized. Using an escape basket was retrieved in its entirety. Pyelogram was then performed to confirm placement of the stent. 4.8 Liberian contour stent was then placed with the proximal end coiled in the renal pelvis and the distal end in the bladder. Bladder was drained. 2% viscous lidocaine was inserted into the urethra patient is taken recovery stable condition. She will have the stent removed in a week's time. This completes dictation. Please send a copy of op note to my office. Estimated Blood Loss 0 Drains Yes Packing No Pathology Yes Complications No immediate complications Condition Stable Disposition PACU
[2024-01-16] MEDS: fentaNYL CITRATE INJ (*CRX) 100 MCG/2 ML VIAL 25 MCG IV PUSH ×8 (11:13→11:30)
[2024-01-16] MEDS: oxyBUTYnin CHLORIDE 5 MG TABLET PO (11:51)
[2024-01-16] MEDS: ONDANSETRON INJ 4 MG/2 ML VIAL IV PUSH (12:21)
[2024-01-16] MEDS: oxyCODONE HCL (*CRX) 5 MG TAB IR PO (12:28)
[2024-01-16] MEDS: SCOPOLAMINE 1 MG PATCH 1 PATCH TRANSDERM (13:10)
[2024-01-16] MEDS: KETOROLAC 30 MG/ML VIAL (*BKC) IV PUSH (13:10)
== END 2024-01-16 13:46 | disposition home or self-care (01) ==
PROVIDERS: PCP Family Medicine; Visit Provider Urology
PROC: (CPT 52352; principal; 2024-01-16 10:00)
DX: N20.1 Calculus of ureter (principal); I10 Essential (primary) hypertension; E78.5 Hyperlipidemia, unspecified; E66.9 Obesity, unspecified; Z68.34 Body mass index [BMI] 34.0-34.9, adult
CPT/HCPCS: 52332; 52352; 74420; 82365; 87086; 88300; A9270; C1758; C1769; C2617; J0690; J1100; J1170; J1885; J2250; J2405; J2704; J3010; J7120; Q9966

== ENCOUNTER 2024-01-18 14:57 | Emergency (ER) | payer OTHER, SELFPAY ==
--- NOTE | ~2024-01-18 | XR_ITS ---
XR abdomen/kub 1V 01/18/2024 16:06 INDICATION: Ureteral stent TECHNIQUE: KUB COMPARISON: 08/18/2023 FINDINGS: Bowel gas pattern is normal. There is no evidence of free air, mass, organomegaly, ascites or obstruction. No abnormal calculi are seen. There is a right internal ureteral stent. There are p elvic phleboliths. The bones appear intact. IMPRESSION: 1: No acute abdominal abnormality identified. Reviewed, dictated and finalized at location B.
[2024-01-18 14:59] VITALS: BP 136/79; PULSE 68; RESP 18; O2SAT 99
--- NOTE | 2024-01-18 16:35 | ED.GENADULT ---
HPI - General Adult General Chief complaint: Urogenital-Female Stated complaint: vomiting and right flank pain Time Seen by Provider: 01/18/24 15:50 History of Present Illness HPI narrative: 33-year-old female presenting to the emergency department for evaluation for worsening flank pain and hematuria with associated nausea and vomiting. Patient does have a known kidney stone and did have ureteral stent placed on Monday. Patient states since then she has had persistent pain and hematuria. Related Data Allergies Allergy/AdvReac Type Severity Reaction Status Date / Time No Known Allergies Allergy Verified 01/16/24 08:15 Review of Systems Review of Systems: All systems reviewed & are unremarkable except as noted in HPI and below PMFSH Past Medical History Medical History Essential (primary) hypertension (~2010) History of kidney stones Hyperlipidemia Right flank pain Seasonal allergies Surgical History Surgical History H/O section (~2009) History of renal stent Family History Family History Father Family history of hypercholesterolemia Hypertension Malignant neoplasm of prostate Sibling Family history of hypercholesterolemia Hypertension Melanoma Grandparent Family history of lung cancer Family history of heart disease in male family member before age 55 Social History Social History Smoking status: Never smoker Second hand tobacco smoke exposure: No Alcohol intake: current Drinks per week: 1 Alcohol use details: RARE Substance use: never Substance use type: does not use Lack of Transportation: No Lack of Food: Never True Current Housing: I Have Housing Concerned About Future Housing: No Difficulty Paying Gas/Electric Bills: No Difficulty Paying for Meds: No Currently Unemployed: No Education: Associate Degree Difficulty w/ Childcare or Family Care: No Living arrangements: with family 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 EYES: PERRLA/EOMI, conjunctivae clear. NOSE: Normal no drainage EARS:TMS clear with good light reflex. THROAT: Pharynx clear, no exudate. NECK: Supple. No adenopathy, no masses. RESPIRATORY: Airway patent, respirations nonlabored. Clear to auscultation bilaterally, no rales, rhonchi, wheezing. CARDIOVASCULAR: Regular rate and rhythm without murmurs rubs or gallops. ABDOMINAL: Soft, nontender, nondistended, normal bowel sounds MUSCULOSKELETAL: Moves all extremities. Strength/ROM intact, No edema, No calf tenderness. NEURO: Alert. Cranial nerves II through XII intact. SKIN: Warm, dry. Normal Color Course Course Emergency Course: Patient did feel improved with treatment ultimately patient requested to be discharged to home and will have close follow-up with Urology. Vital Signs Vital signs: Vital Signs Pulse Rate 68 01/18/24 14:59 Respiratory Rate 18 01/18/24 14:59 Blood Pressure 136/79 01/18/24 14:59 Pulse Oximetry 99 01/18/24 14:59 Oxygen Delivery Room Air 01/18/24 14:59 Temperature 97.9 F 01/18/24 18:00 Pulse Rate 78 01/18/24 18:00 Respiratory Rate 16 01/18/24 18:00 Blood Pressure 119/71 01/18/24 18:00 Pulse Oximetry 95 01/18/24 18:00 Oxygen Delivery Room Air 01/18/24 14:59 Medical Decision Making [facility] Narrative Medical decision making narrative: 33-year-old female present to the e
[2024-01-18] MEDS: ONDANSETRON INJ 4 MG/2 ML VIAL IV PUSH (16:38)
[2024-01-18 16:39] LABS: BEDSIDEPREGUCG Negative
[2024-01-18 16:41] LABS: Basophils Absolute Auto 0.1 K/mm3 (0.0-0.1); Basophils Percent Auto 0.4 % (0.2-1.2); Eosinophils Absolute Auto 0.1 K/mm3 (0-0.3); Eosinophils Percent Auto 0.4 % (0-4.4); Hemoglobin 14.4 g/dL (12.0-15.0); Immature Granulocyte Absolute 0.07 K/mm3 (0.00-0.031); Immature Granulocyte Percent A 0.4 % (0-0.5); Lymphocytes Absolute Auto 1.86 K/mm3 (0.9-3.2); Lymphocytes Percent Auto 11.7 % (18.3-44.2); Mean Corpuscular HGB Conc 34.3 g/dl (32-36); Mean Corpuscular Volume 93.3 fl (80-100); Mean Platelet Volume 8.8 fl (7.4-10.4); Monocytes Absolute Auto 1.2 K/mm3 (0.1-0.6); Monocytes Percent Auto 7.3 % (2.6-8.5); Neutrophils Absolute Auto 12.7 K/mm3 (1.3-6.7); Neutrophils Percent Auto 79.8 % (45.5-73.1); Platelet Count Result 294 k/mm3 (150-375); Red Cell Distribution Width 12.3 % (11.5-14.5); White Blood Count 15.9 K/mm3 (4.5-10.0)
[2024-01-18] MEDS: HYDROmorphone HCL INJ (*CRX) 1 MG/ML SYR IV PUSH (16:41)
[2024-01-18] MEDS: SODIUM CHLORIDE 0.9% IV 1,000 ML 999 ML IV CONT (16:41)
[2024-01-18 16:49] VITALS: BP 119/77; PULSE 78; RESP 16; TEMP 36.6; O2SAT 98
[2024-01-18 16:53] LABS: Alanine Aminotransferase 39 U/L (6-35); Albumin Level 4.8 g/dL (3.5-5.1); Alkaline Phosphatase 69 U/L (38-126); Anion Gap 12 mmol/L (4-12); Aspartate Amino Transferase 32 U/L (14-36); Bilirubin,Total 0.4 mg/dL (0.2-1.3); Blood Urea Nitrogen 15 mg/dL (7-17); Calcium 9.5 mg/dL (8.4-10.2); Carbon Dioxide 26 mmol/L (22-30); Chloride 100 mmol/L (98-107); Estimated Glomerular Filt Rate > 60; Glucose 99 mg/dL (65-110); Lipase 100 U/L (23-300); Potassium 4.1 mmol/L (3.4-5.0); Sodium 138 mmol/L (137-145)
[2024-01-18 17:01] VITALS: BP 121/73; PULSE 78; RESP 16; TEMP 36.7; O2SAT 99
[2024-01-18 17:18] LABS: Appearance Urine Turbid (Clear); Color Urine Dark Red (Yellow)
[2024-01-18 17:21] LABS: Add Urine Microscopic? YES
[2024-01-18 17:22] LABS: Bacteria Urine 1+ /hpf; RBC Urine >100 /hpf (0-2)
[2024-01-18 17:31] VITALS: BP 144/83; PULSE 80; RESP 16; TEMP 36.6; O2SAT 96
[2024-01-18] MEDS: HYDROmorphone HCL INJ (*CRX) 1 MG/ML SYR 0.5 MG IV PUSH (17:43)
[2024-01-18] MEDS: HYDROcodone/acetaminophen (*CRX) 10-325 MG TABLET 1 TAB PO (17:44)
[2024-01-18 18:00] VITALS: BP 119/71; PULSE 78; RESP 16; TEMP 36.6; O2SAT 95
== END 2024-01-18 18:20 | disposition home or self-care (01) ==
PROVIDERS: Emergency Provider Emergency Medicine; PCP Family Medicine
DX: R10.9 Unspecified abdominal pain (principal); R31.9 Hematuria, unspecified; I10 Essential (primary) hypertension; E78.5 Hyperlipidemia, unspecified
CPT/HCPCS: 36415; 74018; 80053; 81001; 81025; 83690; 85025; 96361; 96374; 96375; 99284; A9270; J1170; J2405; J7030

== ENCOUNTER 2024-02-22 07:12 | Outpatient (CLI) | payer OTHER, SELFPAY ==
--- NOTE | ~2024-02-22 | XR_ITS ---
Supine and upright views of the abdomen Clinical history: Right ureteral stone COMPARISON: 01/18/2024 Findings: Bowel gas pattern is nonspecific. No evidence for obstruction or free air. Probable small c alcified pelvic phleboliths on the right side versus possibly distal right ureteral stones. Right ure teral stent no longer present. Osseous structures are intact. Impression: Probable small calcified pelvic phleboliths, versus possibly distal right ureteral stones. Interval removal of right ureteral stent. Reviewed, dictated and finalized at location . Impression: Probable small calcified pelvic phleboliths, versus possibly distal right urete ral stones. Interval removal of right ureteral stent.
== END 2024-02-22 07:13 ==
LOC: MICIMG 07:14
PROVIDERS: PCP Nurse Practitioner; Visit Provider Urology
DX: N20.1 Calculus of ureter (principal)
CPT/HCPCS: 74018

== ENCOUNTER 2024-07-08 16:00 | Emergency (ER) | payer OTHER, SELFPAY ==
[2024-07-08 16:11] VITALS: BP 140/77; PULSE 91; RESP 18; TEMP 36.7; O2SAT 100
--- NOTE | 2024-07-08 16:26 | ED_ITS ---
HPI - Ear Problem General Chief complaint: Ear Stated complaint: ear pain Time Seen by Provider: 07/08/24 16:27 Source: patient, RN notes reviewed and old records reviewed Mode of arrival: ambulatory Limitations: no limitations History of Present Illness HPI Narrative: patient presents with complaints of right-sided ear pain and right-sided sinus pain and congestion. She reports that symptoms have been present for 1-2 weeks, worsening. She reports that she has had tubes to her ears 3 times, gets frequent sinusitis is. Used to follow with ENT, has not in quite some time but is getting ready to start again. She denies any fever, chills, sweats. She does report that she has been more tired than normal. She has been taking [id number] medications with mild relief. She denies any injury or trauma. No other concerns or complaints Related Data Allergies Allergy/AdvReac Type Severity Reaction Status Date / Time No Known Allergies Allergy Verified 07/08/24 16:43 Review of Systems Review of Systems: All systems reviewed & are unremarkable except as noted in HPI and below Constitutional: Constitutional: Reports no additional constitutional complaints ENT: Reports system reviewed and no additional complaints, except as documented, Reports otalgia, Reports nasal congestion, Reports nasal discharge, Reports sinus pain, Reports sinus pressure and Reports sore throat Cardiovascular: Cardiovascular: Reports no additional cardiovascular complaints Respiratory: Respiratory: Reports no additional respiratory complaints Gastrointestinal: Gastrointestinal: Reports no additional gastrointestinal complaints [facility] Past Medical History Medical History Essential (primary) hypertension (~2010) History of kidney stones Hyperlipidemia Right flank pain Seasonal allergies Surgical History Surgical History History of renal stent H/O section (~2009) Family History Family History Father Family history of hypercholesterolemia Hypertension Malignant neoplasm of prostate Sibling Family history of hypercholesterolemia Hypertension Melanoma Grandparent Family history of lung cancer Family history of heart disease in male family member before age 55 Social History Social History Smoking status: Never smoker Second hand tobacco smoke exposure: No Alcohol intake: current Drinks per week: 1 Alcohol use details: RARE Substance use: never Substance use type: does not use Lack of Transportation: No Lack of Food: Never True Current Housing: I Have Housing Concerned About Future Housing: No Difficulty Paying Gas/Electric Bills: No Difficulty Paying for Meds: No Currently Unemployed: No Education: Associate Degree Difficulty w/ Childcare or Family Care: No Living arrangements: with family Additional living arrangements comments: 10 y/o son. 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 Occupation/Education: occupation Gender identity (if verbalized by the patient): Female Sexual Orientation (if Verbalized by the Patient): Straight or Heterosexual Spiritual care concerns: No Agree to blood products: Yes Comments At the time of my signature, I reviewed and agree with the nursing past medical, surgical, social, and family history. There is no relevant family history pertinent to the patient complaint. Exam Const: General: cooperative, no acute distress, alert and awake Orientation/consciousness: oriented to person, oriented to place and oriented to time HENMT: Head: normal to inspection Ears: TM abnormal with fluid behind the TM on the right and scarred bilateral Face and sinus: sinus tenderness Throat: posterior oropharynx abnormal erythema and postnasal drainage Resp: Effort & Inspection: normal respiratory effort and able to speak in comp lete sentences Auscultation: clear to auscultation bilaterally, no crackles, no rales, no rhonchi and no wheezes Cardio: Palpation: normal PMI Rate: regular rate Rhythm: regular rhythm Heart sounds: S1 normal heart sound present and S2 normal heart sound present Neuro: General: oriented to person, oriented to place and oriented to time Cranial nerves: Yes CN's II-XII intact bilaterally Psych: Appearance: grossly normal Thought process: Normal thought process present Insight: Good insight present (Psych) Judgement: Good judgement present (Psych) Course Course Level of Care: Express Care Visit Vital Signs Vital signs: Vital Signs Temperature 98.1 F 07/08/24 16:11 Pulse Rate 91 07/08/24 16:11 Respiratory Rate 18 07/08/24 16:11 Blood Pressure 140/77 07/08/24 16:11 Pulse Oximetry 100 07/08/24 16:11 Oxygen Delivery Room Air 07/08/24 16:11 Temperature 98.1 F 07/08/24 16:11 Pulse Rate 91 07/08/24 16:11 Respiratory Rate 18 07/08/24 16:11 Blood Pressure 140/77 07/08/24 16:11 Pulse Oximetry 100 07/08/24 16:11 Oxygen Delivery Room Air 07/08/24 16:11 Reviewed Medical Decision Making MDM Narrative Medical decision making narrative: history and exam consistent with sinusitis. Patient follow-up with primary care provider. Emergency department for new or worse symptoms Discharge instructions reviewed with patient, as well as provided in writing per nursing staff. The instructions also include specific and strict return/GO TO THE ER as well as f/u information. All questions have been answered, and the patient deny any further questions with discharge and discharge plan. Some parts of this dictation were generated by voice recognition software and may contain typographical and/or grammatical inaccuracies. Vital Signs Vital Signs: Vital Signs Temperature 98.1 F 07/08/24 16:11 Pulse Rate 91 07/08/24 16:11 Respiratory Rate 18 07/08/24 16:11 Blood Pressure 140/77 07/08/24 16:11 Pulse Oximetry 100 07/08/24 16:11 Oxygen Delivery Room Air 07/08/24 16:11 Temperature 98.1 F 07/08/24 16:11 Pulse Rate 91 07/08/24 16:11 Respiratory Rate 18 07/08/24 16:11 Blood Pressure 140/77 07/08/24 16:11 Pulse Oximetry 100 07/08/24 16:11 Oxygen Delivery Room Air 07/08/24 16:11 reviewed Lab Data Lab results reviewed: Yes I reviewed the patient's lab results. Lab results narrative: reviewed Discharge Plan Discharge Clinical Impression: Sinusitis Qualifiers: Sinusitis location: maxillary Chronicity: acute Recurrence: not specified as recurrent Qualified Code(s): J01.00 - Acute maxillary sinusitis, unspecified Patient Disposition: Home, Self-Care Condition: Stable Instructions: Antibiotic Form, Sinusitis (ED) Additional Instructions: take medications as prescribed. Follow-up with primary care provider. Emergency department for new or worsening symptoms Patient Language: Polish Prescriptions: New amoxicillin-pot clavulanate 875-125 mg tablet 1 tablet PO Q12H Qty: 14 0RF prednisone 50 mg tablet 50 mg PO DAILY Qty: 5 0RF No Action pravastatin 10 mg tablet 10 mg PO QHS Qty: 90 2RF lisinopril 10 mg tablet 10 mg PO DAILY Qty: 90 1RF Follow-up/Referrals: Radha,KADEN Nelson [Primary Care Provider] - 2 Weeks Time of Disposition: 17:07
== END 2024-07-08 17:12 | disposition home or self-care (01) ==
PROVIDERS: Emergency Provider Nurse Practitioner Family; PCP Nurse Practitioner
DX: J01.00 Acute maxillary sinusitis, unspecified (principal); I10 Essential (primary) hypertension; E78.5 Hyperlipidemia, unspecified; Z96.0 Presence of urogenital implants
CPT/HCPCS: 99213; G0463

== ENCOUNTER 2024-09-13 15:22 | Outpatient (CLI) | payer OTHER, SELFPAY ==
--- NOTE | ~2024-09-13 | XR_ITS ---
Exam: Abdomen 1V HISTORY: HX kidney stones COMPARISON: 02/22/2024 TECHNIQUE: Supine images of the abdomen FINDINGS: Bowel gas pattern is non-obstructive. There is no free air or deep sulci. No pathologic calcifications are seen. Redemonstration of subcentimeter phleboliths within the right hemipelvis Lung bases are included. Bones and soft tissues are unremarkable. IMPRESSION: Nonspecific, nonobstructive bowel gas pattern. No renal calculi as detailed above. Reviewed, dictated and finalized at location A.
== END 2024-09-13 15:23 | disposition home or self-care (01) ==
LOC: MICIMG 15:23
PROVIDERS: PCP Urology; Visit Provider Urology
DX: Z87.442 Personal history of urinary calculi (principal)
CPT/HCPCS: 74018